=== PATIENT | female | born 1965 | race Hispanic/Latino ===

== ENCOUNTER 2022-04-05 18:15 | Inpatient (IN) | payer BC ==
[~2022-04-05] VITALS: Ht 154.9 cm; Wt 58.7 kg
[2022-04-05] MEDS ORDERED: NITROGLYCERIN 0.4 MG SL TAB SL PRN (19:30)
[2022-04-05] MEDS ORDERED: VANCOMYCIN PROTOCOL PER PHARMACY IV PRN (19:30)
[2022-04-05] MEDS ORDERED: ACETAMINOPHEN 325 MG TAB PO PRN (19:30)
[2022-04-05] MEDS ORDERED: GLUCAGON 1MG KIT 1 MG ML IM PRN (19:30)
[2022-04-05] MEDS ORDERED: HEPARIN 25,000 UNITS/250ML D5W 250 ML IV SCH (19:30)
[2022-04-05] MEDS ORDERED: DEXTROSE 50%-WATER 50 ML DISP.SYRIN IV PRN (19:30)
[2022-04-05 20:00] VITALS: BP 134/70
[2022-04-05] MEDS ORDERED: ZOSYN 3.375GM+NS 50ML 50 ML IV ONE (20:30)
[2022-04-05] MEDS ORDERED: PHARMACY COMMUNICATION MISC SCH (20:30)
[2022-04-05 20:49] LABS: CREATINE KINASE, TOTAL 37 U/L (21-232); MYOGLOBIN 19 ng/mL (10-92)
[2022-04-05 20:57] LABS: CRP QUANTITATIVE < 2.00 mg/L (0.00-9.0)
[2022-04-05] MEDS: PHARMACY COMMUNICATION MISC SCH (21:00)
[2022-04-05 21:02] LABS: HEMOGLOBIN A1C 7.1 % (4.0-6.0)
[2022-04-05] MEDS ORDERED: VANCOMYCIN 1 GM/250 ML MISC SCH (21:30)
[2022-04-05] MEDS ORDERED: VANCOMYCIN 1G 1 GM in 0.9% NACL 250ML 250 ML IVPB ONE (21:30)
[2022-04-05] MEDS ORDERED: VANCOMYCIN KIT 1 GM/250 ML IV.KIT IV ONE (21:30)
[2022-04-05] MEDS: FAMOTIDINE 20MG TAB PO SCH (22:52)
[2022-04-05] MEDS: 0.9%NACL 1000ML 1,000 ML IV SCH (22:52)
[2022-04-05] MEDS: INSULIN HUMULIN R 100 UNIT/ML 3ML SQ SCH (22:54)
[2022-04-05] MEDS ORDERED: HEPARIN 5,000 UNIT VIAL ONE (23:18)
[2022-04-06] VITALS (14 sets, daily range): BP systolic 98–152; BP diastolic 57–81
[2022-04-06] MEDS: ZOSYN 3.375GM+NS 50ML 50 ML IV SCH ×4 (00:26→22:05)
[2022-04-06] MEDS ORDERED: ONDA22I PO (02:19)
[2022-04-06] MEDS ORDERED: ATOR40TA71 PO (02:19)
[2022-04-06] MEDS ORDERED: LISI20TA24 PO (02:19)
[2022-04-06] MEDS ORDERED: METF-444 PO (02:19)
[2022-04-06] MEDS ORDERED: APIX5TAB PO (02:19)
[2022-04-06] MEDS ORDERED: NIFE60TA81 PO (02:19)
[2022-04-06] MEDS ORDERED: PROC5TAB12 PO (02:19)
[2022-04-06] MEDS ORDERED: MAGNESIUM 2GM PREMIX 50ML 50 ML IV ONE (02:30)
[2022-04-06 04:25] LABS: BASOPHILS % (AUTO) 0.4 % (0.0-5.0); EOSINOPHILS % (AUTO) 1.7 % (0.0-8.0); HEMATOCRIT 29.4 % (36-48); MEAN CORPUSCULAR HEMOGLOBIN 26.2 pg (27.0-33.0); MEAN CORPUSCULAR HGB CONC 32.3 g/dL (32.0-36.0); MEAN CORPUSCULAR VOLUME 81.2 fL (79-99); MONOCYTES % (AUTO) 8.3 % (3.0-13.0); NEUTROPHILS % (AUTO) 53.9 % (40.0-77.0); PLATELET COUNT (AUTO) 309 K/uL (130-400); RED BLOOD CELL COUNT(AUTO) 3.62 MIL/uL (4.00-5.50); RED CELL DISTRIBUTION WIDTH 18.4 % (11.0-15.5); WHITE BLOOD COUNT (AUTO) 7.2 K/uL (4.8-10.8)
[2022-04-06 04:41] LABS: INR 0.93 (0.85-1.15); PROTHROMBIN TIME 9.9 SEC (9.6-11.6)
[2022-04-06 04:43] LABS: PARTIAL THROMBOPLASTIN TIME 57.5 SEC (26.3-35.5)
[2022-04-06 04:45] LABS: ALBUMIN 2.6 g/dL (3.5-5.0); CREATININE 1.1 mg/dL (0.5-1.5); MAGNESIUM 1.9 mg/dL (1.80-2.40); POTASSIUM 4.2 mmol/L (3.5-5.1); TOTAL PROTEIN, SERUM 6.7 g/dL (6.0-8.3)
[2022-04-06] MEDS: PHARMACY COMMUNICATION MISC SCH ×2 (05:00→13:00)
[2022-04-06] MEDS: INSULIN HUMULIN R 100 UNIT/ML 3ML SQ SCH ×4 (06:23→22:04)
[2022-04-06] MEDS: FAMOTIDINE 20MG TAB PO SCH ×2 (07:44→21:55)
[2022-04-06] MEDS: 0.9%NACL 1000ML 1,000 ML IV SCH ×2 (08:50→22:05)
[2022-04-06] MEDS ORDERED: NITROGLYCERIN 50MG VIAL ONE (10:57)
[2022-04-06] MEDS ORDERED: IOHEXOL-350 50ML VIAL IV ONE (10:57)
[2022-04-06] MEDS ORDERED: IOHEXOL-350 75 ML VIAL IV ONE (10:57)
[2022-04-06] MEDS ORDERED: HEPARIN 10,000 UNIT/10ML (1,000 UNIT/ML) VIAL ONE (10:57)
[2022-04-06] MEDS ORDERED: VERAPAMIL HCL 2.5 MG/ML VIAL ONE (10:57)
[2022-04-06] MEDS ORDERED: LIDOCAINE HCL-MPF 2% 10ML AMP IJ ONE (10:57)
[2022-04-06] MEDS ORDERED: MIDAZOLAM HCL 5 MG/ML 2ML VIAL IV ONE (10:59)
[2022-04-06] MEDS ORDERED: FENTANYL CITRATE PF 50 MCG/1 ML 2ML VIAL ONE (10:59)
[2022-04-06] MEDS ORDERED: DEXTROSE 50%-WATER 50 ML DISP.SYRIN IV PRN (12:30)
[2022-04-06] MEDS ORDERED: 0.9%NACL 1000ML 1,000 ML IV SCH (12:30)
[2022-04-06] MEDS ORDERED: GLUCAGON 1MG KIT 1 MG ML IM PRN (12:30)
[2022-04-06] MEDS: ATORVASTATIN 40 MG TABLET PO SCH (21:55)
[2022-04-07 00:03] VITALS: BP 135/73
[2022-04-07 02:45] LABS: BASOPHILS % (AUTO) 0.6 % (0.0-5.0); EOSINOPHILS % (AUTO) 1.7 % (0.0-8.0); HEMATOCRIT 27.2 % (36-48); LYMPHOCYTES % (AUTO) 37.3 % (21.0-51.0); MEAN CORPUSCULAR HEMOGLOBIN 26.4 pg (27.0-33.0); MEAN CORPUSCULAR HGB CONC 32.4 g/dL (32.0-36.0); MEAN CORPUSCULAR VOLUME 81.7 fL (79-99); MONOCYTES % (AUTO) 10.1 % (3.0-13.0); NEUTROPHILS % (AUTO) 49.9 % (40.0-77.0); PLATELET COUNT (AUTO) 325 K/uL (130-400); RED BLOOD CELL COUNT(AUTO) 3.33 MIL/uL (4.00-5.50); RED CELL DISTRIBUTION WIDTH 18.7 % (11.0-15.5); WHITE BLOOD COUNT (AUTO) 5.3 K/uL (4.8-10.8)
[2022-04-07 03:03] VITALS: BP 130/68
[2022-04-07 03:23] LABS: % IRON SATURATION 23.7 % (22-44)
[2022-04-07 03:33] LABS: CARBON DIOXIDE 28 mmol/L (21-32); CHLORIDE 106 mmol/L (101-111); CREATININE 0.9 mg/dL (0.5-1.5); GLOMERULAR FILTR. RATE CALC 68 mL/min (>60); GLUCOSE,RANDOM 84 mg/dL (70-105); POTASSIUM 3.9 mmol/L (3.5-5.1); SODIUM SERUM 139 mmol/L (136-145); THYROID STIMULATING HORMONE 3.17 uIU/mL (0.36-3.74); UREA NITROGEN, BLOOD 18 mg/dL (7-18)
[2022-04-07] MEDS: INSULIN HUMULIN R 100 UNIT/ML 3ML SQ SCH ×4 (06:42→21:42)
[2022-04-07] MEDS: ZOSYN 3.375GM+NS 50ML 50 ML IV SCH (06:51)
[2022-04-07 08:00] VITALS: BP 151/76
[2022-04-07] MEDS: FAMOTIDINE 20MG TAB PO SCH ×2 (08:12→20:01)
[2022-04-07] MEDS ORDERED: 0.9% NACL 250ML 250 ML IV SCH (09:00)
[2022-04-07] MEDS ORDERED: VANCOMYCIN 750MG VIAL IVPB SCH (09:00)
[2022-04-07] MEDS ORDERED: ASPIRIN 81MG CHEW TAB ONE (10:05)
[2022-04-07] MEDS ORDERED: CLOPIDOGREL 75MG TAB ONE (10:06)
[2022-04-07] MEDS ORDERED: METOPROLOL SUCCINATE 25 MG TAB.SR.24H PO ONE (10:06)
[2022-04-07] MEDS ORDERED: LISINOPRIL 10 MG TABLET ONE (10:06)
[2022-04-07] MEDS ORDERED: IRON SUCROSE COMPLEX 500 MG in 0.9%NACL 50ML 50 ML IV SCH (10:30)
[2022-04-07] MEDS ORDERED: EPOETIN ALFA-EPBX (NON-ESRD) 10,000 UNIT/ML VIAL SQ SCH (10:30)
[2022-04-07 11:49] VITALS: BP 146/81
[2022-04-07 16:02] VITALS: BP 160/78
[2022-04-07] MEDS: ACETAMINOPHEN 325 MG TAB PO PRN (16:24)
[2022-04-07 20:01] VITALS: BP 168/79
[2022-04-07] MEDS: ATORVASTATIN 40 MG TABLET PO SCH (20:01)
[2022-04-07] MEDS: ONDANSETRON 4MG INJ IV PRN (20:10)
[2022-04-08] VITALS (7 sets, daily range): BP systolic 128–164; BP diastolic 67–87
[2022-04-08] MEDS: ONDANSETRON 4MG INJ IV PRN (01:58)
[2022-04-08 03:56] LABS: BASOPHILS % (AUTO) 0.8 % (0.0-5.0); EOSINOPHILS % (AUTO) 1.6 % (0.0-8.0); HEMATOCRIT 27.7 % (36-48); LYMPHOCYTES % (AUTO) 33.1 % (21.0-51.0); MEAN CORPUSCULAR HEMOGLOBIN 26.1 pg (27.0-33.0); MEAN CORPUSCULAR HGB CONC 32.1 g/dL (32.0-36.0); MEAN CORPUSCULAR VOLUME 81.2 fL (79-99); MONOCYTES % (AUTO) 9.9 % (3.0-13.0); NEUTROPHILS % (AUTO) 54.2 % (40.0-77.0); PLATELET COUNT (AUTO) 304 K/uL (130-400); RED BLOOD CELL COUNT(AUTO) 3.41 MIL/uL (4.00-5.50); RED CELL DISTRIBUTION WIDTH 18.6 % (11.0-15.5); WHITE BLOOD COUNT (AUTO) 4.9 K/uL (4.8-10.8)
[2022-04-08 04:08] LABS: CREATININE 1.5 mg/dL (0.5-1.5); POTASSIUM 3.7 mmol/L (3.5-5.1)
[2022-04-08] MEDS: INSULIN HUMULIN R 100 UNIT/ML 3ML SQ SCH ×4 (06:08→20:52)
[2022-04-08] MEDS: METOPROLOL SUCCINATE 25 MG TAB.SR.24H PO SCH (08:18)
[2022-04-08] MEDS: FAMOTIDINE 20MG TAB PO SCH ×2 (08:18→20:52)
[2022-04-08] MEDS: CLOPIDOGREL 75MG TAB PO SCH (08:19)
[2022-04-08] MEDS: HONEY 1 APPL/ML TUBE TP SCH (08:22)
[2022-04-08] MEDS: 0.9%NACL 1000ML 1,000 ML IV SCH ×2 (08:37→17:42)
[2022-04-08] MEDS ORDERED: ASPIRIN 81 MG EC TAB PO SCH (09:00)
[2022-04-08] MEDS ORDERED: LISINOPRIL 10 MG TABLET PO SCH (09:00)
[2022-04-08 14:49] LABS: CREATININE 1.4 mg/dL (0.5-1.5); POTASSIUM 4.2 mmol/L (3.5-5.1)
[2022-04-08] MEDS: ACETAMINOPHEN 325 MG TAB PO PRN (18:08)
[2022-04-08] MEDS: METFORMIN HCL 500 MG TABLET PO SCH (19:28)
[2022-04-08] MEDS: ATORVASTATIN 40 MG TABLET PO SCH (20:52)
[2022-04-09] MEDS: 0.9%NACL 1000ML 1,000 ML IV SCH ×2 (03:55→16:46)
[2022-04-09 04:05] VITALS: BP 142/74
[2022-04-09 04:11] LABS: BASOPHILS % (AUTO) 0.6 % (0.0-5.0); EOSINOPHILS % (AUTO) 1.4 % (0.0-8.0); HEMATOCRIT 28.1 % (36-48); LYMPHOCYTES % (AUTO) 39.8 % (21.0-51.0); MEAN CORPUSCULAR HEMOGLOBIN 26.3 pg (27.0-33.0); MEAN CORPUSCULAR VOLUME 82.2 fL (79-99); MONOCYTES % (AUTO) 9.3 % (3.0-13.0); NEUTROPHILS % (AUTO) 48.4 % (40.0-77.0); PLATELET COUNT (AUTO) 282 K/uL (130-400); RED BLOOD CELL COUNT(AUTO) 3.42 MIL/uL (4.00-5.50); RED CELL DISTRIBUTION WIDTH 18.4 % (11.0-15.5); WHITE BLOOD COUNT (AUTO) 6.3 K/uL (4.8-10.8)
[2022-04-09 04:27] LABS: POTASSIUM 3.6 mmol/L (3.5-5.1)
[2022-04-09] MEDS: INSULIN HUMULIN R 100 UNIT/ML 3ML SQ SCH ×3 (06:13→16:47)
[2022-04-09 07:00] VITALS: BP 161/80
[2022-04-09] MEDS: APIXABAN 5 MG TABLET PO SCH ×2 (07:52→20:17)
[2022-04-09] MEDS: METFORMIN HCL 500 MG TABLET PO SCH ×2 (07:53→16:46)
[2022-04-09] MEDS: FAMOTIDINE 20MG TAB PO SCH ×2 (07:53→20:17)
[2022-04-09] MEDS: METOPROLOL SUCCINATE 25 MG TAB.SR.24H PO SCH (07:53)
[2022-04-09] MEDS: CLOPIDOGREL 75MG TAB PO SCH (07:54)
[2022-04-09] MEDS: HONEY 1 APPL/ML TUBE TP SCH (07:59)
[2022-04-09] MEDS ORDERED: LISINOPRIL 5 MG TABLET PO SCH (09:00)
[2022-04-09] MEDS ORDERED: NIFEDIPINE ER 30 MG TAB PO SCH ×2 (09:00→19:30)
[2022-04-09 11:00] VITALS: BP 145/66
[2022-04-09 16:00] VITALS: BP 155/84
[2022-04-09] MEDS ORDERED: AMLO-257 PO (19:20)
[2022-04-09] MEDS ORDERED: CLOP75TA14 PO (19:20)
[2022-04-09] MEDS ORDERED: METO25TA3 PO (19:20)
[2022-04-09] MEDS ORDERED: LISI5TAB21 PO (19:20)
[2022-04-09] MEDS ORDERED: CHLO25TA3 PO (19:20)
[2022-04-09] MEDS: ATORVASTATIN 40 MG TABLET PO SCH (20:16)
== END 2022-04-09 20:40 | disposition home or self-care (01) | DRG 281 ==
LOC: 2DH 18:43 → INTOOBSV 18:43 → OBSVTOIN 18:43
PROVIDERS: ADMIT Internal Medicine; ATTEND Internal Medicine
PROC: 4A023N7 Measurement of Cardiac Sampling and Pressure, Left Heart, Percutaneous Approach (ICD-10-PCS; principal; 2022-04-06)
PROC: B2111ZZ Fluoroscopy of Multiple Coronary Arteries using Low Osmolar Contrast (ICD-10-PCS; 2022-04-06)
DX: I21.19 ST elevation (STEMI) myocardial infarction involving other coronary artery of inferior wall (principal); N17.9 Acute kidney failure, unspecified; E83.42 Hypomagnesemia; E78.5 Hyperlipidemia, unspecified; E11.9 Type 2 diabetes mellitus without complications; S41.001A Unspecified open wound of right shoulder, initial encounter; D64.9 Anemia, unspecified; I10 Essential (primary) hypertension; I25.2 Old myocardial infarction; Z79.01 Long term (current) use of anticoagulants; Z79.02 Long term (current) use of antithrombotics/antiplatelets; Z79.84 Long term (current) use of oral hypoglycemic drugs; Z79.899 Other long term (current) drug therapy
CPT/HCPCS: 36415; 80048; 80053; 80061; 80202; 82550; 82607; 82728; 82746; 82948; 83036; 83540; 83550; 83735; 83874; 84443; 84484; 85025; 85347; 85610; 85651; 85730; 86140; 87040; 93005; 93306; 93356; 93458; 93571; 93970; 97039; 99156; 99157; C1769; C1887; G0378; J1644; J1756; J1815; J2250; J2405; J2543; J3010; J3475; J3490; J7030; Q9967